=== PATIENT | male | born 1960 | race Two or more races ===

== ENCOUNTER 2017-10-03 23:13 | Emergency (ER) | payer OTHER ==
[~2017-10-03] VITALS: Ht 172.7 cm; Wt 83.5 kg
[~2017-10-03 23:13] MED LIST: PRED10TA23 PO
--- NOTE | 2017-10-04 00:20 | NUR ---
PT PRESENTED TO THE ER WITH A C/O HEMATURIA. PT DENIES PAIN AT THIS TIME.
[2017-10-04 00:41] LABS: APPEARANCE,URINE CLOUDY (CLEAR); BILIRUBIN,URINE NEGATIVE (NEGATIVE); BLOOD, URINE 3+ Ery/uL (NEGATIVE); COLOR,URINE RED (YELLOW); KETONES,URINE 1+ (NEGATIVE); LEUKOCYTE ESTERASE ,URINE 2+ (NEGATIVE); NITRITE, URINE POSITIVE (NEGATIVE); PROTEIN,URINE 3+ mg/dl (NEGATIVE); UGLUCOSE NEGATIVE (NEGATIVE)
[2017-10-04 00:50] LABS: BACTERIA,URINE None seen /HPF (None Seen); RBC,URINE TOO NUMEROUS TO COUN /HPF (0-2)
[2017-10-04 00:51] LABS: SQUAMOUS EPITHELIAL CELL,UR Few /HPF (None Seen)
[2017-10-04] MEDS ORDERED: CIPROFLOXACIN HCL 500 MG TABLET ONE (00:54)
[2017-10-04] MEDS ORDERED: CIPROFLOXACIN HCL 250 MG TABLET PO ONE (01:00)
[2017-10-04 01:02] VITALS: BP 141/84
--- NOTE | 2017-10-04 01:04 | NUR ---
Patient discharged to home in stable condition. Written and verbal after care instructions given. Patient verbalizes understanding of instruction AND RX. PT AMBULATED OUT WITH A STEADY GAIT. PT REC'D A COPY OF LABS. PT DENIES PAIN AT THIS TIME. RESP EVEN AND UNLABORED. VSS. PT'S IS DRIVING PT HOME.
== END 2017-10-04 01:04 | disposition home or self-care (01) ==
LOC: ER 23:17
DX: N39.0 Urinary tract infection, site not specified (principal); R31.9 Hematuria, unspecified; I10 Essential (primary) hypertension; F17.200 Nicotine dependence, unspecified, uncomplicated; Z95.818 Presence of other cardiac implants and grafts
CPT/HCPCS: 81001; 87086; 99284; A4606; Z7610; 81000-TC

== ENCOUNTER 2021-11-21 21:51 | Inpatient (IN) | payer OTHER ==
[~2021-11-21] VITALS: Ht 172.7 cm; Wt 81.6 kg
--- NOTE | 2021-11-21 22:05 | NUR ---
BIBS C/O LEFT CHESTPAIN RADIATING TO LEFT SHOULDER X3DAYS, HEADACHE, AND URINATING BLOOD FOR "TWO WEEKS". PT AAOX4 BREATHING EVENLY AND UNLABORED. PT ATTACHED TO MONITOR AND POX. PT CHANGED INTO GOWN AND GIVEN BLANKET AND CALL LIGHT WITHIN REACH
--- NOTE | 2021-11-21 22:13 | NUR ---
BLOOD COLLECTED AND SENT TO LAB
--- NOTE | 2021-11-21 22:13 | NUR ---
EMT @ BEDSIDE FOR EKG
[2021-11-21] MEDS ORDERED: ASPIRIN 325 MG TABLET ONE (22:14)
[2021-11-21 22:22] LABS: BASOPHILS # (AUTO) 0.1 K/uL (0.0-0.2); BASOPHILS % (AUTO) 0.5 % (0.0-2.0); EOSINOPHILS % (AUTO) 1.4 % (0.0-6.0); HEMATOCRIT 23 % (39-51); HEMOGLOBIN 7.5 g/dL (13.5-17.5); LYMPHOCYTES # (AUTO) 4.4 K/uL (0.8-4.8); LYMPHOCYTES % (AUTO) 40.4 % (20.0-44.0); MEAN CORPUSCULAR HGB CONC 33 g/dl (31.0-36.0); MEAN CORPUSCULAR VOLUME 81 fL (80-96); MONOCYTES # (AUTO) 0.6 K/uL (0.1-1.30); MONOCYTES % (AUTO) 5.9 % (2.0-12.0); NEUTROPHILS # (AUTO) 5.6 K/uL (1.8-8.9); NEUTROPHILS % (AUTO) 51.8 % (43.0-81.0); PLATELET COUNT (AUTO) 322 K/uL (150-450); RED BLOOD CELL COUNT(AUTO) 2.84 MIL/uL (4.5-6.0); WHITE BLOOD COUNT (AUTO) 10.9 K/uL (4.3-11.0)
--- NOTE | 2021-11-21 22:25 | NUR ---
urine and covid swab sent to lab
[2021-11-21] MEDS ORDERED: ASPIRIN 325 MG TABLET PO ONE (22:30)
[2021-11-21 22:38] LABS: ALBUMIN 3.5 g/dL (3.4-5.0); BILIRUBIN,DIRECT 0.1 mg/dL (0.0-0.2); BILIRUBIN,TOTAL 0.2 mg/dL (0.2-1.0); CALCIUM, SERUM 8.7 mg/dL (8.5-10.1); CREATININE 1.4 mg/dL (0.6-1.3); POTASSIUM 3.9 mmol/L (3.5-5.1); TOTAL PROTEIN, SERUM 6.9 g/dL (6.4-8.2)
[2021-11-21 23:01] LABS: BILIRUBIN,URINE NEGATIVE (NEGATIVE); COLOR,URINE RED (YELLOW); LEUKOCYTE ESTERASE ,URINE MODERATE (NEGATIVE); NITRITE, URINE POSITIVE (NEGATIVE); PH,URINE 6.5 (5.0-8.0); PROTEIN,URINE >=300 mg/dl (NEGATIVE); UGLUCOSE 100 MG/DL mg/dL (NEGATIVE); UROBILINOGEN,URINE >=8.0 EU/dL (0.2)
[2021-11-21 23:03] LABS: D-DIMER 0.24 mg/L(FEU (0.17-0.50)
[2021-11-21] MEDS ORDERED: CIPROFLOXACIN HCL 500 MG TABLET ONE (23:27)
[2021-11-21] MEDS ORDERED: MAG HYDROX/AL HYDROX/SIMETH 30 ML UDC PO PRN (23:30)
[2021-11-21] MEDS ORDERED: Z GUARD REMEDY 4 OZ OINT TP PRN (23:30)
[2021-11-21] MEDS ORDERED: CIPROFLOXACIN HCL 500 MG TABLET PO ONE (23:30)
[2021-11-21] MEDS ORDERED: ONDANSETRON HCL/PF 4 MG/2 ML VIAL IVP PRN (23:30)
[2021-11-21] MEDS ORDERED: ACETAMINOPHEN 325 MG TABLET PO PRN (23:30)
[2021-11-21] MEDS ORDERED: MAGNESIUM HYDROXIDE 30 ML UDC PO PRN (23:30)
[2021-11-21] MEDS ORDERED: IV D5/0.45 NACL 1,000 ML IV PRN (23:30)
--- NOTE | 2021-11-22 | NUR ---
PT SITTING QUIETLY, ATTACHED TO MONITOR, EASILY AROUSABLE
--- NOTE | 2021-11-22 03:26 | NUR ---
Patient is resting comfortably in bed with eyes closed. Easily aroused. VSS
--- NOTE | 2021-11-22 04:26 | NUR ---
GAVE REPORT TO OLIVER LAMAR FOR ZENAIDA
[2021-11-22 05:17] LABS: BASOPHILS # (AUTO) 0.1 K/uL (0.0-0.2); BASOPHILS % (AUTO) 0.6 % (0.0-2.0); EOSINOPHILS % (AUTO) 1.9 % (0.0-6.0); HEMATOCRIT 22 % (39-51); HEMOGLOBIN 7.2 g/dL (13.5-17.5); LYMPHOCYTES # (AUTO) 4.2 K/uL (0.8-4.8); MEAN CORPUSCULAR HGB CONC 32 g/dl (31.0-36.0); MEAN CORPUSCULAR VOLUME 81 fL (80-96); MONOCYTES # (AUTO) 0.7 K/uL (0.1-1.30); MONOCYTES % (AUTO) 7.2 % (2.0-12.0); NEUTROPHILS # (AUTO) 4.2 K/uL (1.8-8.9); NEUTROPHILS % (AUTO) 45.3 % (43.0-81.0); PLATELET COUNT (AUTO) 315 K/uL (150-450); RED BLOOD CELL COUNT(AUTO) 2.75 MIL/uL (4.5-6.0); WHITE BLOOD COUNT (AUTO) 9.3 K/uL (4.3-11.0)
[2021-11-22 05:25] LABS: ALBUMIN 3.3 g/dL (3.4-5.0); BILIRUBIN,TOTAL 0.2 mg/dL (0.2-1.0); CALCIUM, SERUM 8.2 mg/dL (8.5-10.1); CREATININE 1.3 mg/dL (0.6-1.3); MAGNESIUM 2.1 mg/dL (1.8-2.4); TOTAL PROTEIN, SERUM 6.6 g/dL (6.4-8.2)
--- NOTE | 2021-11-22 06:58 | NUR ---
pt sleeping, attached to monitor and pox
[2021-11-22] MEDS ORDERED: ATOR40TA PO (07:44)
[2021-11-22] MEDS ORDERED: METO25TA20 PO (07:44)
[2021-11-22] MEDS ORDERED: ASPI-1420 PO (07:44)
[2021-11-22] MEDS ORDERED: LANS15CA18 PO (07:44)
[2021-11-22] MEDS ORDERED: CLOP75TA15 PO (07:44)
--- NOTE | 2021-11-22 08:00 | NUR ---
THE PATIENT IS TRANSFERED TO ROOM 323-2 IN STABLE CONDITION AND PER POLICY
--- NOTE | 2021-11-22 08:00 | NUR ---
DIRECTOR LABOR STANDARDS NOTES RECEIVED PATIENT IN STABLE CONDITION. A/O X4 BOTH [place] AND [place] SPEAKING. EQUAL CHEST EXPANSION DURING RESPIRATIONS WITH NO S/SX OF DISTRESS NOTED. NO COMPLAINTS OF PAIN VERBALIZED AT THIS TIME. TELE MONITOR IN PLACE SHOWING S TACHY 106 BPM. R FA #18G INTACT AND PATENT. PATIENT WAS EDUCATED ON USE OF CALL LIGHT FOR ASSISTANCE. SAFETY PRECAUTIONS IN PLACE: BED IN LOWEST POSITION, WHEELS ARE LOCKED, CALL LIGHT WITHIN REACH, SIDE RAILS UP X2. WILL CONTINUE TO MONITOR PATIENT
[2021-11-22] MEDS ORDERED: LANSOPRAZOLE 15 MG PO SCH (08:30)
[2021-11-22] MEDS ORDERED: CIPROFLOXACIN HCL 250 MG TABLET PO SCH (09:00)
[2021-11-22] MEDS ORDERED: CLOPIDOGREL BISULFATE 75 MG TABLET PO SCH (09:00)
[2021-11-22] MEDS: ASPIRIN EC 81 MG TABLET.DR PO SCH (09:30)
[2021-11-22] MEDS: METOPROLOL TARTRATE 25 MG TABLET PO SCH ×2 (09:30→18:15)
[2021-11-22] MEDS: PANTOPRAZOLE 40 MG TABLET.DR PO SCH (09:31)
[2021-11-22] MEDS: ATORVASTATIN 40 MG TABLET PO SCH (09:31)
[2021-11-22 09:47] LABS: IRON, SERUM 3 ug/dl (50-175); TOTAL IRON BINDING CAPACITY 262 ug/dl (250-450)
[2021-11-22 10:00] LABS: FERRITIN 10 ng/mL (8-388)
[2021-11-22 12:00] VITALS: BP 107/64
[2021-11-22] MEDS: CEFTRIAXONE 1 G in IV D5W 50 ML IV SCH (12:56)
[2021-11-22 15:14] LABS: RBC,URINE TOO NUMEROUS TO COUN /HPF (0-2); WBC,URINE 21-50 /HPF (0-3)
[2021-11-22 15:15] LABS: BACTERIA,URINE Moderate /HPF (None Seen); SQUAMOUS EPITHELIAL CELL,UR Moderate /HPF (None Seen)
[2021-11-22] MEDS ORDERED: IOHEXOL-350 100 ML VIAL IV ONE ×2 (15:37→15:46)
[2021-11-22] MEDS ORDERED: IV NS 0.9% 250 ML IV ONE (15:37)
[2021-11-22] MEDS ORDERED: IV NS 0.9% 500 ML IV ONE (15:41)
[2021-11-22] MEDS ORDERED: METOPROLOL TARTRATE INJ 5 MG/5 ML AMPUL ONE (15:47)
[2021-11-22] MEDS: METOPROLOL TARTRATE INJ 5 MG/5 ML AMPUL IVP PRN ×3 (15:50→16:00)
[2021-11-22] MEDS ORDERED: NITROGLYCERIN 0.4 MG/TAB BOTTLE SL ONE (16:00)
--- NOTE | 2021-11-22 16:15 | NUR ---
IVB 0.9%ns GIVEN PRIOR TO CTCA D/T LOW BP 103/65
[2021-11-22 17:35] LABS: CREATININE, URINE 76.3 MG/DL (30.0-125.0); URINE TOTAL PROTEIN 498.8 mg/dL (0-11.9)
[2021-11-22 18:16] LABS: BILIRUBIN,URINE NEGATIVE (NEGATIVE); COLOR,URINE RED (YELLOW); LEUKOCYTE ESTERASE ,URINE NEGATIVE (NEGATIVE); NITRITE, URINE NEGATIVE (NEGATIVE); PH,URINE 6.5 (5.0-8.0); PROTEIN,URINE >=300 mg/dl (NEGATIVE); UGLUCOSE NEGATIVE (NEGATIVE); UROBILINOGEN,URINE 0.2 EU/dL (0.2)
--- NOTE | 2021-11-22 18:50 | NUR ---
CORRUGATED FASTENER DRIVER CLOSING NOTES RECEIVED PATIENT IN STABLE CONDITION. A/O X4 BOTH VIETNAMESE AND NIGERIEN SPEAKING. EQUAL CHEST EXPANSION DURING RESPIRATIONS WITH NO S/SX OF DISTRESS NOTED. NO COMPLAINTS OF PAIN VERBALIZED AT THIS TIME. TELE MONITOR IN PLACE SHOWING SR 77 BPM. R FA #18G INTACT AND PATENT. SAFETY PRECAUTIONS IN PLACE: BED IN LOWEST POSITION, WHEELS ARE LOCKED, CALL LIGHT WITHIN REACH, SIDE RAILS UP X2. WILL ENDORSE TO THE DENTAL SECRETARY NURSE FOR ZENAIDA
[2021-11-22 18:51] LABS: BACTERIA,URINE Few /HPF (None Seen); RBC,URINE TOO NUMEROUS TO COUN /HPF (0-2); SQUAMOUS EPITHELIAL CELL,UR Few /HPF (None Seen)
[2021-11-22 19:00] LABS: EOSINOPHIL,URINE None Seen
--- NOTE | 2021-11-22 19:25 | NUR ---
MATERIAL SPECIALIST OPENING NOTES RECEIVED PATIENT LAYING AWAKE IN BED. A/O X 4. PATIENT WITH REGULAR AND UNLABORED BREATHING ON ROOM AIR TOLERATED WELL. NO SIGNS AND SYMPTOMS OF DISTRESS NOTED AT THIS TIME. NO COMPLAINS OF PAIN OR DISCOMFORT AT THIS TIME. PATIENT ON TELE MONITOR READING SR @ 87 BPM. IV ACCESS RFA G #18 SL. IV ACCESS PATENT AND INTACT. SAFETY PRECAUTIONS ENFORCED WITH BED LOCKED AND AT LOWEST POSITION. SIDERAILS UP X2. CALL LIGHT WITHIN REACH AT ALL TIMES. WILL CONTINUE TO MONITOR PATIENT.
[2021-11-22 20:00] VITALS: BP 91/58
[2021-11-22 20:29] LABS: HEMOGLOBIN 7.1 g/dL (13.5-17.5)
[2021-11-22] MEDS: TAMSULOSIN 0.4 MG CAP.SR.24H PO SCH (22:32)
[2021-11-23] VITALS (12 sets, daily range): BP systolic 100–118; BP diastolic 59–72
--- NOTE | 2021-11-23 06:53 | NUR ---
CABLE OPERATOR CLOSING NOTES PATIENT STILL LAYING AWAKE IN BED. A/O X 4. PATIENT WITH REGULAR AND UNLABORED BREATHING ON ROOM AIR TOLERATED WELL. NO SIGNS AND SYMPTOMS OF DISTRESS NOTED AT THIS TIME. NO COMPLAINS OF PAIN OR DISCOMFORT AT THIS TIME. PATIENT ON TELE MONITOR READING SR @ 70 BPM. IV ACCESS RFA G #18 RUNNING D5 1/2 NS @ 75 ML/HR. IV ACCESS PATENT AND INTACT. SAFETY PRECAUTIONS ENFORCED WITH BED LOCKED AND AT LOWEST POSITION. SIDERAILS UP X2. CALL LIGHT WITHIN REACH AT ALL TIMES. WILL ENDORSE CONTINUITY OF CARE TO DAY SHIFT NURSE.
[2021-11-23 07:00] LABS: BASOPHILS % (AUTO) 0.6 % (0.0-2.0); EOSINOPHILS % (AUTO) 1.6 % (0.0-6.0); LYMPHOCYTES # (AUTO) 3.4 K/uL (0.8-4.8); LYMPHOCYTES % (AUTO) 37.8 % (20.0-44.0); MEAN CORPUSCULAR HGB CONC 33 g/dl (31.0-36.0); MEAN CORPUSCULAR VOLUME 80 fL (80-96); MONOCYTES # (AUTO) 0.7 K/uL (0.1-1.30); MONOCYTES % (AUTO) 7.8 % (2.0-12.0); NEUTROPHILS # (AUTO) 4.7 K/uL (1.8-8.9); NEUTROPHILS % (AUTO) 52.2 % (43.0-81.0); PLATELET COUNT (AUTO) 321 K/uL (150-450); RED BLOOD CELL COUNT(AUTO) 2.54 MIL/uL (4.5-6.0); WHITE BLOOD COUNT (AUTO) 9.1 K/uL (4.3-11.0)
[2021-11-23 07:16] LABS: ALBUMIN 3.1 g/dL (3.4-5.0); BILIRUBIN,TOTAL 0.2 mg/dL (0.2-1.0); CALCIUM, SERUM 8.2 mg/dL (8.5-10.1); CREATININE 1.3 mg/dL (0.6-1.3); MAGNESIUM 1.8 mg/dL (1.8-2.4); PHOSPHORUS 3.8 mg/dL (2.5-4.9); POTASSIUM 3.8 mmol/L (3.5-5.1); TOTAL PROTEIN, SERUM 6.3 g/dL (6.4-8.2)
[2021-11-23 07:41] LABS: HEMATOCRIT 20 % (39-51); HEMOGLOBIN 6.8 g/dL (13.5-17.5)
--- NOTE | 2021-11-23 07:50 | NUR ---
MAGNETIC PROSPECTOR OPENING NOTES RECEIVED Pt RESTING IN BED. A/O X 4. PATIENT WITH REGULAR AND UNLABORED BREATHING ON ROOM AIR AND TOLERATING WELL. NO SIGNS AND SYMPTOMS OF DISTRESS NOTED AT THIS TIME. NO COMPLAINTS OF PAIN OR DISCOMFORT AT THIS TIME. IV ACCESS R FA #18g SL. IV ACCESS PATENT AND INTACT. SAFETY PRECAUTIONS ENFORCED WITH BED LOCKED AND IN LOWEST POSITION. SIDE RAILS UP X2. CALL LIGHT AND BEDSIDE TABLE WITHIN REACH AT ALL TIMES. WILL CONTINUE TO MONITOR THROUGHOUT THE SHIFT
[2021-11-23] MEDS: ASPIRIN EC 81 MG TABLET.DR PO SCH (09:11)
[2021-11-23] MEDS: PANTOPRAZOLE 40 MG TABLET.DR PO SCH (09:11)
[2021-11-23] MEDS: ATORVASTATIN 40 MG TABLET PO SCH (09:12)
[2021-11-23] MEDS: METOPROLOL TARTRATE 25 MG TABLET PO SCH ×2 (09:13→17:41)
[2021-11-23] MEDS: CEFTRIAXONE 1 G in IV D5W 50 ML IV SCH (12:45)
--- NOTE | 2021-11-23 14:56 | NUR ---
MS RN NOTES: BLOOD TRANSFUSION Pt TOLERATED TRANSFUSION WELL. NO REACTIONS. Pt IS A/Ox4 AND EXPRESSES THAT HE FEELS FINE. BP IS 107/68. TEMP IS 97.4. HR IS 81, RESP IS 18. NO COMPLAINTS OF PAIN OR SIGNS OF DISTRESS. WILL CONTINUE TO MONITOR.
[2021-11-23 17:45] LABS: BAND % (MANUAL) 1 % (0.0-5.0); EOSINOPHILS % (MANUAL) 2 % (0-4); LYMPHOCYTES % (MANUAL) 41 % (16-48); MONOCYTES % (MANUAL) 7 % (0-11.0); NEUTROPHILS % (MANUAL) 49 (42-76)
--- NOTE | 2021-11-23 18:39 | NUR ---
MS RN CLOSING NOTES Pt IS LYING IN BED AWAKE. HE IS A/O X4 AND BOTH GABONESE AND LAO SPEAKING. Pt IS ON ROOM AIR AND TOLERATING WELL. RESPIRATIONS WITH NO S/SX OF DISTRESS NOTED. NO COMPLAINTS OF PAIN VERBALIZED AT THIS TIME. Pt HAS A L FA #18G INTACT AND PATENT. SAFETY PRECAUTIONS IN PLACE: BED IS LOCKED AND IN LOWEST POSITION, CALL LIGHT AND BEDSIDE TABLE WITHIN REACH, SIDE RAILS UP X2. WILL ENDORSE TO THE ALUMINUM POURER NURSE.
[2021-11-23] MEDS: TAMSULOSIN 0.4 MG CAP.SR.24H PO SCH (21:09)
[2021-11-24 06:38] LABS: BASOPHILS # (AUTO) 0.1 K/uL (0.0-0.2); BASOPHILS % (AUTO) 0.6 % (0.0-2.0); EOSINOPHILS % (AUTO) 2.3 % (0.0-6.0); HEMATOCRIT 23 % (39-51); HEMOGLOBIN 7.6 g/dL (13.5-17.5); LYMPHOCYTES # (AUTO) 3.1 K/uL (0.8-4.8); LYMPHOCYTES % (AUTO) 35.9 % (20.0-44.0); MEAN CORPUSCULAR HGB CONC 34 g/dl (31.0-36.0); MEAN CORPUSCULAR VOLUME 81 fL (80-96); MONOCYTES # (AUTO) 0.7 K/uL (0.1-1.30); MONOCYTES % (AUTO) 8.7 % (2.0-12.0); NEUTROPHILS # (AUTO) 4.5 K/uL (1.8-8.9); NEUTROPHILS % (AUTO) 52.5 % (43.0-81.0); PLATELET COUNT (AUTO) 299 K/uL (150-450); RED BLOOD CELL COUNT(AUTO) 2.82 MIL/uL (4.5-6.0); WHITE BLOOD COUNT (AUTO) 8.6 K/uL (4.3-11.0)
--- NOTE | 2021-11-24 06:40 | NUR ---
MS RN NOTES AWAKE & RESPONSIVE. NOT IN ANY DISTRESS. NO SOB NOTED. DENIES ANY PAIN OR DISCOMFORT AT THIS TIME. WITH IV-HL PATENT & INTACT. MONITORED ACCORDINGLY. CALL LIGHT WITHIN REACH. BED IN LOWEST POSITION. SR UP X 2 FOR SAFETY. WILL ENDORSE TO NEXT SHIFT.
[2021-11-24 07:08] LABS: CALCIUM, SERUM 8.3 mg/dL (8.5-10.1); CREATININE 1.3 mg/dL (0.6-1.3)
[2021-11-24] MEDS ORDERED: CIPR500T5 PO (08:18)
[2021-11-24] MEDS ORDERED: TAMS-12 PO (08:18)
[2021-11-24] MEDS: ATORVASTATIN 40 MG TABLET PO SCH (08:19)
[2021-11-24] MEDS: PANTOPRAZOLE 40 MG TABLET.DR PO SCH (08:19)
[2021-11-24 08:20] VITALS: BP 106/63
[2021-11-24] MEDS: METOPROLOL TARTRATE 25 MG TABLET PO SCH (08:20)
--- NOTE | 2021-11-24 08:21 | NUR ---
MS RN NOTES METOPROLOL HELD Pt's BP IS 106/63 AND HR IS 80. WILL CONTINUE TO MONITOR
[2021-11-24] MEDS: ASPIRIN EC 81 MG TABLET.DR PO SCH (08:23)
[2021-11-24 10:07] LABS: *SPE A/G RATIO 1.2 (0.7-1.7); *SPE ALPHA-1-GLOBULIN 0.2 g/dL (0.0-0.4); *SPE ALPHA-2-GLOBULIN 0.5 g/dL (0.4-1.0); *SPE BETA GLOBULIN 0.9 g/dL (0.7-1.3); *SPE M-SPIKE 0.8 g/dL (Not Observed)
[2021-11-24] MEDS ORDERED: FERR325T23 PO (10:29)
[2021-11-24] MEDS ORDERED: FERROUS SULFATE (325 MG) 325 MG/TAB TABLET PO SCH (11:00)
--- NOTE | 2021-11-24 11:38 | NUR ---
MS RN NOTES Pt HAS BEEN DISCHARGED. HE IS MEDICALLY STABLE AND HAS RECEIVED DISCHARGE INSTRUCTIONS. IV ACCESS HAS BEEN REMOVED. Pt IS AOx4, BREATHING ON ROOM AIR AND TOLERATING WELL. NO COMPLAINTS OF PAIN OR SIGNS OF DISTRESS. Pt IS AMBULATORY AND LEFT VIA PRIVATE CAR WITH FAMILY MEMBER.
== END 2021-11-24 11:35 | disposition home or self-care (01) | DRG 463 ==
LOC: ER 21:56 → TELE 11-22 04:12 → MED 11-23 08:19
PROVIDERS: ADMIT Hospitalist; ATTEND Internal Medicine
PROC: 30233N1 Transfusion of Nonautologous Red Blood Cells into Peripheral Vein, Percutaneous Approach (ICD-10-PCS; principal; 2021-11-23)
DX: N30.81 Other cystitis with hematuria (principal); N17.0 Acute kidney failure with tubular necrosis; I25.119 Atherosclerotic heart disease of native coronary artery with unspecified angina pectoris; F41.9 Anxiety disorder, unspecified; D64.9 Anemia, unspecified; R73.9 Hyperglycemia, unspecified; I12.9 Hypertensive chronic kidney disease with stage 1 through stage 4 chronic kidney disease, or unspecified chronic kidney disease; E78.5 Hyperlipidemia, unspecified; N18.9 Chronic kidney disease, unspecified; N28.1 Cyst of kidney, acquired; J44.9 Chronic obstructive pulmonary disease, unspecified; Z79.82 Long term (current) use of aspirin; Z95.1 Presence of aortocoronary bypass graft; Z95.5 Presence of coronary angioplasty implant and graft; N40.1 Benign prostatic hyperplasia with lower urinary tract symptoms; Z20.822 Contact with and (suspected) exposure to COVID-19; B96.89 Other specified bacterial agents as the cause of diseases classified elsewhere
CPT/HCPCS: 36415; 71045-TC; 75574; 76770-TC; 80048-TC; 80053-TC; 80061-TC; 80076-TC; 81001; 82550-TC; 82570-TC; 82728-TC; 83540-TC; 83735-TC; 83970; 84100-TC; 84155; 84155-TC; 84165; 84300-TC; 84484-TC; 85025-TC; 85027-TC; 85378-TC; 85730-TC; 86850-TC; 87081-TC; 87086-TC; 93307-TC; C9803; G0378; J0696; J3490; J7030; J7040; J7050; J7060; P9016; Q9967